=== PATIENT | male | born 1955 | race Caucasian/White ===

== ENCOUNTER → 2018-06-03 19:13 | Outpatient (REF) | payer OTHER, SELFPAY ==
[2018-06-03 21:40] LABS: Hep C Virus Ab w/Reflex Quant REACTIVE s/c (NEGATIVE)
[2018-06-08 14:23] LABS: Hepatitis B Surf Ab Qualitativ Nonreactive (Nonreactive)
== END ==
LOC: LAB 19:13
PROVIDERS: Visit Provider Family Medicine
DX: K76.89 Other specified diseases of liver (principal)
CPT/HCPCS: 36415; 82728; 86706; 86803; 87522

== ENCOUNTER → 2019-09-23 14:35 | Outpatient (CLI) | payer OTHER, SELFPAY ==
--- NOTE | 2019-09-23 | DI.ECHO.S_ITS ---
[facility] +---------+ : : [address] : : : : [id number] : : : : Phone: [phone]---------+ Echocardiogram Report + + :Name: CARINA HERNANDEZ Study Date: 09/23/2019 Height: 72 in : :[facility] Weight: 185 lb : : Gender: Male BSA: 2.1 m2 : :: 1955 Age: 64 yrs BP: 128/85 mmHg: :Reason For Study: ABNORMAL DIAGNOSTIC IMAGING FINDINGS : : Performed By: Markel Martinez : :Referring: LEXY PEREZ : + + Interpretation Summary Technically difficult study. Normal left ventricle size with ejection fraction 60-65%. Mildly dilated right atrium. No significant valvular abnormality. Procedure: A two-dimensional transthoracic echocardiogram with color flow and Doppler was performed. The study quality was technically difficult. There is no prior echocardiogram noted for this patient. The subcostal views were difficult to obtain and are suboptimal in quality. A contrast injection of Definity was performed to improve assessment of LV function. The patient was in normal sinus rhythm during the exam. Left Ventricle: The left ventricle is normal in size. There is normal left ventricular wall thickness. The ejection fraction is estimated to be 60-65%. There are no focal wall motion abnormalities. Diastolic parameters suggest probable normal left ventricular diastolic function and normal filling pressures. Right Ventricle: The right ventricle is normal in size and function. Atria: The left atrial size is normal. The right atrium is mildly dilated. The interatrial septum is intact with no evidence for an atrial septal defect. Mitral Valve: The mitral valve is normal in structure and function. There is trace mitral regurgitation. Aortic Valve: The aortic valve is trileaflet. The aortic valve opens well. No aortic regurgitation is present. Tricuspid Valve: The tricuspid valve is normal in structure and function. There is trace tricuspid regurgitation. Right ventricular systolic pressure is estimated to be 19 mmHg plus the clinically estimated CVP which cannot be estimated on this exam. Pulmonic Valve: The pulmonic valve is normal in structure and function. There is trace pulmonic regurgitation. Great Vessels: The aortic root is normal size. The dimensions of the ascending aorta are normal. The pulmonary artery is normal size. The inferior vena cava was not well visualized. Pericardium/ Pleura There is no pericardial effusion. There is no pleural effusion. MMode/2D Measurements & Calculations LVIDd: 4.6 cm LVOT diam: 2.4 cm LVIDs: 3.5 cm Ao root diam: 3.6 cm FS: 24.7 % Aortic Jxn: 2.7 cm EPSS: 0.70 cm asc Aorta Diam: 3.4 cm IVSd: 1.1 cm LVPWd: 0.94 cm LV navarro. diameter/BSA (cm/m^2): 2.2 LV sys. diameter/BSA (cm/m^2): 1.7 LA dimension: 3.3 cm RA long axis: 4.6 cm LA A2 area: 22.2 cm2 RA area: 19.9 cm2 LA A4 area: 19.8 cm2 RA vol: 73.1 ml LA length (vol): 5.3 cm RA : 35.5 ml/m2 LA vol: 69.9 ml LA vol index: 33.9 ml/m2 RVD1 (basal): 4.5 cm RVD2 (mid): 4.2 cm Doppler Measurements & Calculations Ao V2 max: 112.1 cm/sec LVOT Max Khoa: 100.6 cm/sec Ao V2 mean: 87.7 cm/sec LV V1 max P.0 mmHg Ao max P.0 mmHg LV V1 VTI: 21.8 cm Ao mean P.2 mmHg NETO(I,D): 3.6 cm2 Ao V2 VTI: 26.4 cm NETO(V,D): 4.0 cm2 sev ratio: 0.82 NETO indexed to BSA (cm^2/m^2): 1.8 MV E max khoa: 67.3 cm/sec TR max khoa: 216.4 cm/sec MV A max khoa: 77.5 cm/sec TR max P.7 mmHg MV E/A: 0.87 PA V2 max: 83.5 cm/sec Med Peak E' Khoa: 6.4 cm/sec PA V2 mean: 62.9 cm/sec E/E' med: 10.5 PA mean P.7 mmHg Lat Peak E' Khoa: 8.1 cm/sec PA pr(Accel): 71.2 mmHg E/E' lat: 8.3 PA Accel Time: 0.01 sec E/e' average: 9.4 MV dec time: 0.24 sec SV(LVOT): 96.2 ml Electronically signed by: Bonnie Ramon on Reading Physician:09/26/2019 10:48 AM
== END ==
PROVIDERS: PCP Family Medicine; Referring Provider Internal Medicine Cardiovascular Disease; Visit Provider Internal Medicine Cardiovascular Disease
DX: R93.89 Abnormal findings on diagnostic imaging of other specified body structures (principal); R94.31 Abnormal electrocardiogram [ECG] [EKG]
CPT/HCPCS: 93017; 93306; Q9957